=== PATIENT | female | born 1965 | race Caucasian/White ===

== ENCOUNTER 2018-06-10 07:06 | Day surgery (SDC) | payer OTHER ==
[2018-06-10] MEDS ORDERED: MIDAZOLAM 1 MG/ML 2 ML INJ ×3 (10:00→10:01)
[2018-06-10] MEDS ORDERED: FENTAnyl 50 MCG/ML VIAL (10:01)
== END 2018-06-10 12:13 | disposition home or self-care (01) ==
LOC: GIL 07:06
DX: Z12.11 Encounter for screening for malignant neoplasm of colon (principal); K64.8 Other hemorrhoids; K57.30 Diverticulosis of large intestine without perforation or abscess without bleeding
CPT/HCPCS: 45378